=== PATIENT | male | born 1970 | race Hispanic/Latino ===

== ENCOUNTER 2019-08-10 15:21 | Emergency (ER) | payer SELFPAY ==
[2019-08-10] MEDS ORDERED: Fluorescein Opthalmic Strip ONE (15:43)
[2019-08-10] MEDS ORDERED: Tetracaine 0.5% OPHTH SOLN/PF 4 ML BOT ONE (15:43)
== END 2019-08-10 16:10 | disposition home or self-care (01) ==
LOC: MADERS 15:21
DX: T15.02XA Foreign body in cornea, left eye, initial encounter (principal)
CPT/HCPCS: 65222